=== PATIENT | male | born 1960 | race Caucasian/White ===

== ENCOUNTER → 2023-07-15 08:07 | Outpatient (CLI) | payer OTHER, SELFPAY ==
--- NOTE | 2023-07-15 08:11 | DI.RAD.S_ITS ---
PROCEDURE: XR KUB INDICATIONS: Left renal calculus TECHNIQUE: One view of the abdomen acquired. COMPARISON: [facility], CT, CT KUB, 07/08/2023, 7:52. FINDINGS: Surgical changes and devices: None. Bowel: Bowel gas pattern is normal. Soft tissues: Unchanged calcification overlying the left renal pelvis. Visualized solid organ contours appear normal in size. Bones: No suspicious bony lesions. IMPRESSION: Unchanged appearance of calcification overlying the left renal pelvis. Dictated by: Ana Cristina Eisenberg M.D. on 07/15/2023 at 15:10 Approved by: Ana Cristina Eisenberg M.D. on 07/15/2023 at 15:11
== END ==
PROVIDERS: PCP Family Medicine; Referring Provider Specialist; Visit Provider Specialist
DX: N20.0 Calculus of kidney (principal)
CPT/HCPCS: 74018

== ENCOUNTER 2023-07-26 09:26 | Day surgery (SDC) | payer OTHER, SELFPAY ==
[2023-07-18 10:37] VITALS: BMI 24.3
[2023-07-26 09:40] VITALS: BMI 24.3
[2023-07-26 09:45] VITALS: BP 155/79; PULSE 73; RESP 16; TEMP 35.9; O2SAT 100
[2023-07-26] MEDS: LACTATED RINGERS 1,000 ML 21 ML IV (09:50)
--- NOTE | 2023-07-26 10:28 | PM.PREOP ---
Pre-operative Note Interval Note History & Physical reviewed/Exam performed by Physician: Yes Changes to H&P: No
[2023-07-26] MEDS: CEFAZOLIN 2 GM/100 ML PREMIX 100 ML IV (10:40)
--- NOTE | 2023-07-26 10:55 | SUR.OPER ---
Lithotomy on ESWL table, head on pillow, padded and yucked. Legs secured in ESWL table stirrups.
[2023-07-26 11:38] VITALS: BP 133/65; PULSE 64; RESP 10; TEMP 36.2; O2SAT 99
[2023-07-26 11:45] VITALS: BP 128/78; PULSE 69; RESP 10; O2SAT 98
[2023-07-26] MEDS: ONDANSETRON 4 MG/2 ML INJ IV (11:45)
[2023-07-26] MEDS: OXYCODONE/ACETAMINOPHEN 5/325 TABLET 1 TAB PO (11:45)
[2023-07-26 11:47] VITALS: BP 133/88; PULSE 72; RESP 17; O2SAT 98
--- NOTE | 2023-07-26 11:49 | P.OP_ITS ---
Operative Date/Time/Diagnoses Date of procedure: 07/26/23 Time of procedure: 11:30 Pre-op diagnosis: 1. Obstructing 2+ cm left ureteropelvic junction calculus. 2. Left renal colic. Post-op diagnosis: same Procedure & Clinicians Procedure: 1. Cystoscopy/placement left ureteral stent (8 Brazilian by 22-32 cm multi- length)/manipulation of left ureteropelvic junction calculus without removal. 2. Left extracorporeal shockwave lithotripsy (maximal power level 8.0 x 2500 shocks). Same procedure as scheduled: Yes Indications: 1. Obstructing 2+ cm left ureteropelvic junction calculus. 2. Left renal colic. Surgeon: Juan Tidwell Click Yes if Unassisted: Yes Anesthesia Type: General Operative Notes Findings: 1. Urethra-normal caliber without annular stricture or lesion. 2. External sphincter-normal caliber without lesion or vascular abnormality. 3. Prostate-4 cm length with elevated median bar and mild lateral lobe hyperplasia. 4. Bladder-1+ trabeculation. Normal ureteral orifices bilaterally. Closure Type: not applicable Specimen(s): none sent Applied: other (Eight Brazilian by 22-32 cm multi-length stent.) Estimated Blood Loss (mL): 0 Blood products transfused: none Procedure in detail: The patient was positioned in supine was administered general anesthesia. The patient was then repositioned in semi-lithotomy and the lower abdomen, genitalia, and groin were then prepped and draped in sterile fashion. The 22 Brazilian panendoscope was then passed the lower urinary tract with the findings as described above. A 0.35 hybrid guidewire was then advanced through the working channel of the panendoscope and then advanced in the left ureteral orifice and advanced proximally under direct and fluoroscopic guidance. Next, an 8 Brazilian by 22-32 cm multi-length stent was selected. This was then advanced over the hybrid guidewire under direct and fluoroscopic guidance. Extreme obstruction was met the level of the stone at the left ureteropelvic junction indicating high level impaction. With great effort the stent eventually was negotiated beyond the stone with an excellent coil formed in the proximal left collecting system. The stone was not dislodged during manipulation. The ureteral guidewire was then withdrawn after the retrieval line was excised and removed. The bladder is then drained completely. The patient was then repositioned in supine in the above-described stone was localized in the X, Y, and Z plane. Lithotripsy was then commenced at minimal power level and gradually increased to a maximum power level of 8.0. The stone and its fragments were relocalized numerous times throughout the case. There was excellent radiographic evidence of stone comminution of the proximal 1/2 to 2/3 of the stone. The distal most portion remained radiographically intact but may very well be fragmented but compressed within the edematous distal most ureteropelvic junction. At 2500 shocks treatment was halted. [facility] then [facility] condition. Complications: none Post-operative Condition: stable Disposition: PACU Plan for aftercare: Discharge home.
[2023-07-26 11:52] VITALS: BP 134/81; PULSE 67; RESP 12; TEMP 36.7; O2SAT 98
[2023-07-26 11:57] VITALS: BP 145/86; PULSE 66; RESP 12; TEMP 36.7; O2SAT 100
--- NOTE | 2023-07-26 12:47 | SUR.PHASEII ---
1205 - voided per urinal 100cc's bloody urine. urine strained - no sediment or clots noted. encouraged to force fluids at home. urine strainers, urinal and specimen cups sent home with patient
== END 2023-07-26 12:15 | disposition home or self-care (01) ==
PROVIDERS: PCP Family Medicine; Referring Provider Specialist; Visit Provider Specialist
PROC: (CPT 50590; principal; 2023-07-26 10:30)
DX: N20.1 Calculus of ureter (principal); N40.0 Benign prostatic hyperplasia without lower urinary tract symptoms
CPT/HCPCS: 50590; 52332; J0690; J1100; J2405; J2704; J3010

== ENCOUNTER → 2023-08-08 09:41 | Outpatient (CLI) | payer OTHER, SELFPAY ==
--- NOTE | 2023-08-08 09:42 | DI.RAD.S_ITS ---
PROCEDURE: XR KUB INDICATIONS: kidney stones TECHNIQUE: One view of the abdomen acquired. COMPARISON: [facility], CT, CT KUB, 07/08/2023, 7:52. [facility], CR, XR KUB, 07/15/2023, 8:14. FINDINGS: Surgical changes and devices: None. Bowel: Bowel gas pattern is normal. Soft tissues: The large proximal left ureteral stone is somewhat fragmented period there is now a double-J ureteral stent bridging the stone with pigtails in the region of the upper pole collecting system and the bladder. There are numerous small stone fragments in the lower pole collecting system. Visualized solid organ contours appear normal in size. Bones: No suspicious bony lesions. IMPRESSION: Interval placement of a double-J stent with fragmentation of a large proximal left ureteral stone. Stone fragments are now present in the lower pole calyx. Dictated by: Kendrick Parrish M.D. on 08/08/2023 at 11:10 Approved by: Kendrick Parrish M.D. on 08/08/2023 at 11:12
[2023-08-23 23:14] LABS: Size 3x3 mm (.)
== END ==
PROVIDERS: PCP Family Medicine; Referring Provider Specialist; Visit Provider Specialist
DX: N20.1 Calculus of ureter (principal); Z96.0 Presence of urogenital implants
CPT/HCPCS: 74018; 81002; 82365; 87086; 99215

== ENCOUNTER → 2023-08-08 11:30 | Outpatient (CLI) | payer OTHER, SELFPAY | PROVIDERS: PCP Family Medicine; Visit Provider Specialist | DX: N20.0 Calculus of kidney (principal) | CPT/HCPCS: 87086 ==

== ENCOUNTER 2023-08-26 08:39 | Day surgery (SDC) | payer OTHER, SELFPAY ==
[2023-08-22 08:31] VITALS: BMI 24.3
--- NOTE | 2023-08-26 06:00 | DI.RAD.S_ITS ---
PROCEDURE: XR KUB INDICATIONS: Left renal calculi TECHNIQUE: One view of the abdomen acquired. COMPARISON: [facility], CR, XR KUB, 08/08/2023, 9:42. [facility], CR, XR KUB, 07/15/2023, 8:14. FINDINGS: Surgical changes and devices: None. Bowel: Bowel gas pattern is normal. Soft tissues: Suspect interval lithotripsy. Left nephroureteral stent projects over the left kidney and urinary bladder. 1.6 centimeter stone fragment projects over the renal pelvis and 1.7 centimeter fragment projects over the inferior calyx of the left kidney. Smaller stones likely within the renal pelvis. Bones: No suspicious bony lesions. IMPRESSION: Similar size and appearance of the left-sided stones, with a 1.6 centimeters stone likely within the proximal left ureter. Nephroliths stent in place. Dictated by: Reuben Solorio M.D. on 08/26/2023 at 9:13 Approved by: Reuben Solorio M.D. on 08/26/2023 at 9:14
[2023-08-26] MEDS: LACTATED RINGERS 1,000 ML 21 ML IV (09:06)
[2023-08-26] MEDS: ACETAMINOPHEN IV 1,000 MG/100 ML VIAL 400 MG IV (09:08)
[2023-08-26 09:28] VITALS: BP 130/85; PULSE 72; RESP 16; TEMP 36.7; O2SAT 100; BMI 24.3
--- NOTE | 2023-08-26 09:56 | PM.PREOP ---
Pre-operative Note Interval Note History & Physical reviewed/Exam performed by Physician: Yes Changes to H&P: No
--- NOTE | 2023-08-26 10:18 | SUR.OPER ---
Supine on ESWL table, head on pillow, arms padded and tucked at sides, legs uncrossed, tape over blanket over lower legs .
[2023-08-26 10:50] VITALS: BP 139/75; PULSE 67; RESP 16; TEMP 36.2; O2SAT 99
[2023-08-26 11:00] VITALS: BP 138/75; PULSE 72; RESP 16; TEMP 36.2; O2SAT 98
--- NOTE | 2023-08-26 11:10 | PM.OP.1 ---
Operative Date/Time/Diagnoses Date of procedure: 08/26/23 Time of procedure: 10:50 Pre-op diagnosis: 1. Left nephrolithiasis 2. Left UPJ calculus 3. Retained left ureteral stent Post-op diagnosis: same Procedure & Clinicians Procedure: 1. Second-stage left extracorporeal shockwave lithotripsy (maximal power level 8.0 times 2315 shocks). Same procedure as scheduled: Yes Indications: 1. Left nephrolithiasis 2. Left UPJ calculus 3. Retained left ureteral stent Surgeon: Juan Tidwell Click Yes if Unassisted: Yes Anesthesia Type: General Operative Notes Findings: 1. Irregular and intact 1+ cm left UPJ calculus adjacent to appropriate position left ureteral stent-unchanged from preoperative imaging. 2. Collection of multiple tiny left lower pole calculus fragments and what appears to be 1 intact 4-5 mm fragment-unchanged from preoperative imaging. Closure Type: not applicable Specimen(s): none sent Estimated Blood Loss (mL): 0 Blood products transfused: none Procedure in detail: The patient was positioned in supine was administered general anesthesia. The above-described left UPJ calculus was then localized in the X, Y, and Z plane. Lithotripsy was then commenced at minimal power level for 200 shocks. A 2 minute pause was then conducted. Lithotripsy was then resumed and power level was gradually increased to maximum power level of 8.0. The stone was localized as needed throughout treatment. A total of 2315 shocks were administered due to meeting maximal single treatment energy delivery. Treatment was halted at this time. The calculus remained mostly radiographically intact. The patient was then awakened, transferred to [facility], and then transported recovery in stable condition. Complications: none Post-operative Condition: stable Disposition: PACU Plan for aftercare: Discharge home.
[2023-08-26] MEDS: FUROSEMIDE 40 MG/4 ML VIAL 20 MG IV (11:14)
[2023-08-26] MEDS: OXYCODONE IR 5 MG TABLET PO (11:16)
[2023-08-26 11:18] VITALS: BP 138/84; PULSE 65; RESP 16; TEMP 36.2; O2SAT 98
[2023-08-26 11:30] VITALS: BP 130/82; PULSE 72; RESP 16; TEMP 36.1; O2SAT 100
== END 2023-08-26 12:00 | disposition home or self-care (01) ==
PROVIDERS: PCP Family Medicine; Referring Provider Specialist; Visit Provider Specialist
PROC: (CPT 50590; principal; 2023-08-26 10:45)
DX: N20.2 Calculus of kidney with calculus of ureter (principal); Z96.0 Presence of urogenital implants
CPT/HCPCS: 50590; 74018; J0131; J1100; J1885; J1940; J2405; J2704; J3010

== ENCOUNTER → 2023-09-27 11:43 | Outpatient (CLI) | payer OTHER, SELFPAY ==
--- NOTE | 2023-09-27 11:44 | DI.RAD.S_ITS ---
PROCEDURE: XR KUB INDICATIONS: Left Renal Stone TECHNIQUE: One view of the abdomen acquired. COMPARISON: [facility], CR, XR KUB, 08/26/2023, 8:53. FINDINGS: Surgical changes and devices: Left ureteral stent Bowel: Bowel gas pattern is normal. Soft tissues: Residual stones in the lower pole of the left kidney, fragmented in appearance. Continued proximal left ureteral stone, not significantly changed. Bones: No suspicious bony lesions. IMPRESSION: Uterus stent remains in place. Continued left lower pole stone disease and proximal left ureteral stone. Dictated by: Kendrick Parrish M.D. on 09/27/2023 at 19:04 Approved by: Kendrick Parrish M.D. on 09/27/2023 at 19:05
== END ==
PROVIDERS: PCP Family Medicine; Referring Provider Specialist; Visit Provider Specialist
DX: N20.0 Calculus of kidney (principal); N23 Unspecified renal colic; Z96.0 Presence of urogenital implants
CPT/HCPCS: 74018

== ENCOUNTER 2023-09-30 08:09 | Day surgery (SDC) | payer OTHER, SELFPAY ==
[2023-09-28 12:56] VITALS: BMI 24.3
[2023-09-30] VITALS (7 sets, daily range): BP systolic 120–165; BP diastolic 68–92; PULSE 60–73; RESP 10–100; TEMP 36.1–36.4; O2SAT 20–100; BMI 24.3
--- NOTE | 2023-09-30 | DI.RAD.S_ITS ---
PROCEDURE: XR ABDOMEN 1V INDICATIONS: KIDNEY STONE TECHNIQUE: Single intra-operative images acquired by the Urology service. COMPARISON: None. FINDINGS: Single image demonstrates pigtail stent curled in the left abdomen. IMPRESSION: Intraoperative fluoroscopy for the Urology service. Dictated by: Maryann Berg M.D. on 09/30/2023 at 14:44 Approved by: Maryann Berg M.D. on 09/30/2023 at 14:45
--- NOTE | 2023-09-30 06:00 | DI.RAD.S_ITS ---
PROCEDURE: XR KUB INDICATIONS: Left renal calculi TECHNIQUE: One view of the abdomen acquired. COMPARISON: [facility], CT, CT KUB, 07/08/2023, 7:52. [facility], CR, XR KUB, 09/27/2023, 11:54. [facility], CR, XR KUB, 08/26/2023, 8:53. FINDINGS: Surgical changes and devices: Left double-J ureteral stent is unchanged in location. Bowel: Bowel gas pattern is normal. Soft tissues: Calcific debris adjacent to the proximal left ureteral stent is unchanged. Left kidney stone fragments. No right kidney stones demonstrated. No suspicious abdominal calcifications. Visualized solid organ contours appear normal in size. Bones: No suspicious bony lesions. IMPRESSION: No interval change appreciated. Left ureteral stent. Calcific debris adjacent to the proximal stent in the left ureter as well as in the left kidney. Dictated by: Samson Gilman M.D. on 09/30/2023 at 8:43 Approved by: Samson Gilman M.D. on 09/30/2023 at 8:45
[2023-09-30] MEDS: LACTATED RINGERS 1,000 ML 42 ML IV (08:40)
[2023-09-30] MEDS: ACETAMINOPHEN IV 1,000 MG/100 ML VIAL 400 MG IV (08:43)
--- NOTE | 2023-09-30 09:03 | PM.PREOP ---
Pre-operative Note Interval Note History & Physical reviewed/Exam performed by Physician: Yes Changes to H&P: No
[2023-09-30] MEDS: CEFAZOLIN 2 GM/100 ML PREMIX 100 ML IV (09:40)
--- NOTE | 2023-09-30 10:05 | SUR.OPER ---
Lithotomy on padded OR bed, head on pillow, arms secured on padded arm boards at <90 degrees abduction. Legs secured in padded yellow fins stirrups.
[2023-09-30] MEDS: iopamidoL 30 ML VIAL INJ (10:22)
[2023-09-30] MEDS: LACTATED RINGERS 1,000 ML 21 ML IV (10:28)
--- NOTE | 2023-09-30 11:07 | SUR.PHASEI ---
Received to PACU after general anesthesia. Airway patent, self maintained. Report from KATELYNN Patel and JAZMÍN Tyler.
--- NOTE | 2023-09-30 11:19 | P.OP_ITS ---
Operative Date/Time/Diagnoses Date of procedure: 09/30/23 Time of procedure: 11:05 Pre-op diagnosis: 1. Left UPJ calculus. 2. Left renal calculi. 3. Retained left ureteral stent. Post-op diagnosis: same Procedure & Clinicians Procedure: 1. Cystoscopy/left ureteroscopic laser lithotripsy. 2. Cystoscopy/left ureteral stent exchange. Same procedure as scheduled: Yes Indications: 1. Residual left UPJ and left lower pole renal calculi. 2. History of large left UPJ stone. 3. Retained left ureteral stent Surgeon: Juan Tidwell Click Yes if Unassisted: Yes Anesthesia Type: General Operative Notes Findings: 1. Urethra-normal caliber without annular stricture or lesion. 2. External sphincter coapted with normal overlying urothelium. 3. Prostate-4 cm length with [id number] lateral lobe hyperplasia. 4. Left collecting system-there was a small collection of relatively well fragmented calculi in an interpolar and posterior calyx. There was a larger collection of fragmented calculi residing in the lower pole. Preoperatively there was suspicion of an intact 4-5 mm fragment. I did not identifying treat this definitively (see intraoperative events). There was adherent, partially imbedded nearly circumferential stone within the urothelium/wall in the vicinity of the left UPJ. Closure Type: not applicable Specimen(s): none sent Applied: other (7 Mozambican by 22-32 cm multi-length stent) Estimated Blood Loss (mL): 15 Blood products transfused: none Procedure in detail: The patient was positioned in supine was administered general anesthesia. He was then repositioned in semi lithotomy in the lower abdomen, genitalia, and groin were then prepped and draped in sterile fashion. The 22 Mozambican panendoscope was then passed lower urinary tract with the findings as described above. Alligator tooth foreign body grasper was then utilized to engage the distal end of the retained left ureteral stent. It was then withdrawn with the panendoscope and the distal tip was repositioned distal to the urethral meatus. A 0.35 hybrid guidewire was then advanced through the lumen of the retained ureteral stent and advanced proximally under direct fluoroscopic guidance. The stent was then backloaded off the hybrid guidewire and discarded. Now a dual- lumen ureteral access sheath was advanced over this hybrid guidewire and advanced proximally under direct and fluoroscopic guidance to the level of the most distal renal pelvis/UPJ. A 2nd 0.35 hybrid guidewire was then utilized and a advanced through the accessory channel of the dual-lumen ureteral access sheath again under fluoroscopic guidance. The dual-lumen ureteral access sheath was then backloaded off both wires. One wire was secured to the operative drape. A Dornier disposable flexible ureteral scope was then advanced over the 2nd wire and advanced proximally under fluoroscopic guidance to the level of the left UPJ with findings as described above. Additionally, and importantly, there was prominent bleeding in the vicinity of the left UPJ. The scope was then carefully advanced further and the collection calculi in the interpolar calyx were visualized. A 150 micron laser fiber was then requested and all operating room personnel were fitted with laser safety eyewear. Lithotripsy was then initiated on this group of stones. At this time blood was seen entering the operative field and began to obscure adequate visualization. Further laser lithotripsy was discontinued in this area. The scope was now directed into the lower pole where a larger collection of excellent fragmented pieces were identified. Again, the field became obscured by enough blood where visualization was compromised enough that further lithotripsy was not performed. Next the scope was carefully withdrawn to the area of the previously noted bleeding in the vicinity of the UPJ. The continuity of the ureter and renal pelvis was intact but this was the source of the bleeding. It is the surgeon's impression that during the process of removing the preoperatively positioned retained stent that the memory coil agitated the adherent calculi and created secondary bleeding. Decision was made intraoperatively to abandon the procedure due to safety concerns related to poor visualization. The flexible ureteral scope was then removed. The panendoscope was front loaded on the safety wire under direct visualization. Next, a 7 Mozambican by 22-32 cm multi-length stent was then advanced over the hybrid guidewire under direct and fluoroscopic guidance. NO RETRIEVAL LINE WAS LEFT ATTACHED. The bladder was then drained completely and the panendoscope was removed. The patient was then repositioned in supine, awakened, and then transferred to [facility] in stable condition. Complications: none Post-operative Condition: stable Disposition: PACU Plan for aftercare: 1. Discharge home. 2. Referral to [facility] for combined interventions (antegrade and retrograde).
[2023-09-30] MEDS: FUROSEMIDE 40 MG/4 ML VIAL 20 MG IV (11:21)
[2023-09-30] MEDS: OXYCODONE IR 5 MG TABLET PO ×2 (11:26→11:57)
[2023-09-30] MEDS: ONDANSETRON 4 MG/2 ML INJ IV (11:55)
== END 2023-09-30 12:05 | disposition home or self-care (01) ==
PROVIDERS: PCP Family Medicine; Referring Provider Specialist; Visit Provider Specialist
PROC: 0TF78ZZ Fragmentation in Left Ureter, Via Natural or Artificial Opening Endoscopic (ICD-10-PCS; CPT 52353; principal; 2023-09-30 09:15)
DX: N20.2 Calculus of kidney with calculus of ureter (principal); Z96.0 Presence of urogenital implants
CPT/HCPCS: 52356; 74018; 76000; C1771; J0136; J0690; J1100; J1885; J1940; J2405; J2704; J3010; Q9967